=== PATIENT | female | born 1990 | race Caucasian/White ===

== ENCOUNTER 2019-01-06 02:13 | Emergency (ER) | payer MEDICAID ==
[~2019-01-06] VITALS: Ht 165.1 cm; Wt 83.6 kg
[2019-01-06] MEDS ORDERED: HALOPERIDOL 5 MG INJ ONE (02:27)
[2019-01-06 02:28] VITALS: Ht 165.1 cm; Wt 83.6 kg
[2019-01-06] MEDS ORDERED: DIPHENHYDRAMINE 50 MG INJ ONE (02:28)
[2019-01-06] MEDS ORDERED: LORAZEPAM 2 MG INJ ONE (02:28)
--- NOTE | 2019-01-06 02:33 | ERD ---
ER Documentation Chief Complaint Chief Complaint agitation HPI The patient is a 28-year-old female, presenting to the ER with EMS and [employer] because she was yelling and acting bizarre on the street. She was put under 5150 by [employer]. She is yelling, agitated and unable to provide any history Past medical/surgical history/social history/review of system: Unable to obtain due to her condition ROS All systems reviewed and are negative except as per history of present illness. Medications Home Meds Discontinued Reported Medications [None] No Conflict Check 12/24/10 Allergies Allergies: Coded Allergies: No Known Allergy (Verified Allergy, Unknown, 04/02/11) PMhx/Soc History of Surgery: No Anesthesia Reaction: No Hx Neurological Disorder: No Hx Respiratory Disorders: No Hx Cardiac Disorders: No Hx Psychiatric Problems: No Hx Miscellaneous Medical Probl: No Hx Alcohol Use: No Hx Substance Use: Yes (CRYSTAL METH) Hx Tobacco Use: No Physical Exam Vitals Vital Signs Date Temp Pulse Resp B/P (MAP) Pulse Ox O2 O2 Flow FiO2 Time Delivery Rate 01/06/19 98.9 60 18 112/67 98 Room Air 23:00 (82) 01/06/19 78 18 105/70 100 Room Air 17:30 (82) 01/06/19 73 18 116/72 100 Room Air 16:30 (87) 01/06/19 66 17 96/63 (74) 100 Room Air 15:30 01/06/19 70 17 110/68 100 Room Air 14:14 (82) 01/06/19 82 16 102/60 100 Nasal 2.0 12:02 (74) Cannula 01/06/19 80 16 96/75 (82) 100 Nasal 2.0 08:24 Cannula 01/06/19 77 13 94/53 (67) 100 Nasal 2.0 06:21 Cannula 01/06/19 89 14 98/53 (68) 98 Nasal 2.0 06:00 Cannula 01/06/19 91 14 92/52 (65) 98 Nasal 2.0 05:47 Cannula 01/06/19 91 15 92/48 (63) 98 Nasal 2.0 05:34 Cannula 01/06/19 84 14 101/67 99 Nasal 2.0 05:20 (78) Cannula 01/06/19 83 14 109/57 100 Nasal 4.0 04:51 (74) Cannula 01/06/19 87 14 91/48 (62) 100 Non 10.0 04:42 Rebreather 01/06/19 91 15 100/59 100 Non 10.0 04:25 (73) Rebreather 01/06/19 95 15 100/47 96 Non 10.0 04:07 (64) Rebreather 01/06/19 97 19 97/50 (66) 100 Non 10.0 03:45 Rebreather 01/06/19 97.5 96 15 117/71 96 02:28 (86) Physical Exam Const: No acute distress. Head: Atraumatic. Eyes: Normal Conjunctiva. ENT: Normal External Ears, Nose and Mouth. Neck: Full range of motion. No meningismus. Resp: Clear to auscultation bilaterally. Cardio: Regular rate and rhythm. Abd: Soft, non distended, normal bowel sounds, non tender. Skin: No petechiae or rashes. Back: No midline or flank tenderness. Ext: No cyanosis, or edema. Neur: Awake and alert. No focal deficit Psych: Guarded, agitated, psychotic Result Diagram: 01/06/1931801/06/19318 Results 24 hrs Laboratory Tests Test 01/06/19 03:19 01/06/19 07:13 White Blood Count 5.3 10^3/ul Red Blood Count 3.86 10^6/ul Hemoglobin 11.3 g/dl Hematocrit 34.6 % Mean Corpuscular Volume 89.6 fl Mean Corpuscular Hemoglobin 29.3 pg Mean Corpuscular Hemoglobin Concent 32.7 g/dl Red Cell Distribution Width 13.0 % Platelet Count 230 10^3/UL Mean Platelet Volume 9.0 fl Immature Granulocytes % 0.200 % Neutrophils % 45.4 % Lymphocytes % 44.4 % Monocytes % 7.0 % Eosinophils % 2.4 % Basophils % 0.6 % Nucleated Red Blood Cells % 0.0 /100WBC Immature Granulocytes # 0.010 10^3/ul Neutrophils # 2.4 10^3/ul Lymphocytes # 2.4 10^3/ul Monocytes # 0.4 10^3/ul Eosinophils # 0.1 10^3/ul Basophils # 0.0 10^3/ul Nucleated Red Blood Cells # 0.0 10^3/ul Sodium Level 143 mmol/L Potassium Level 3.6 mmol/L Chloride Level 110 mmol/L Carbon Dioxide Level 22 mmol/L Anion Gap 11 Blood Urea Nitrogen 12 mg/dl Creatinine 0.49 mg/dl Est Glomerular Filtrat Rate mL/min > 60 mL/min Glucose Level 86 mg/dl Calcium Level 8.5 mg/dl Total Bilirubin 0.2 mg/dl Direct Bilirubin 0.00 mg/dl Indirect Bilirubin 0.2 mg/dl Aspartate Amino Transf (AST/SGOT) 39 IU/L Alanine Aminotransferase (ALT/SGPT) 22 IU/L Alkaline Phosphatase 66 IU/L Creatine Kinase 360 IU/L Total Protein 7.8 g/dl Albumin 4.0 g/dl Globulin 3.80 g/dl Albumin/Globulin Ratio 1.05 Beta HCG, Quantitative < 2.4 mIU/ml Salicylates Level < 1.0 mg/dl Urine Opiates Screen Negative Acetaminophen Level < 10.0 ug/ml Urine Barbiturates Negative Urine Amphetamines Screen POSITIVE Urine Benzodiazepines Screen Negative Urine Cocaine Screen Negative Urine Cannabinoids Negative Ethyl Alcohol Level 181.0 mg/dl POC Beta HCG, Qualitative NEGATIVE Current Medications Medications Dose Sig/Bill Start Time Status Last (Trade) Ordered Route PRN Stop Time Admin Dose Reason Admin Haloperidol 5 mg STK-MED 01/06/19 DC (Haldol) ONCE .ROUTE 02:27 01/06/19 02:28 50 mg STK-MED 01/06/19 DC Diphenhydrami ONCE .ROUTE 02:28 ne HCl 01/06/19 02:29 (Benadryl) Lorazepam 2 mg STK-MED 01/06/19 DC (Ativan) ONCE .ROUTE 02:28 01/06/19 02:29 Lorazepam 2 mg ONCE ONCE 01/06/19 DC 01/06/19 (Ativan) IM 03:00 02:50 01/06/19 03:01 Haloperidol 5 mg ONCE ONCE 01/06/19 DC 01/06/19 (Haldol) IM 03:00 02:51 01/06/19 03:01 50 mg ONCE ONCE 01/06/19 DC 01/06/19 Diphenhydrami IM 03:00 02:50 ne HCl 01/06/19 03:01 (Benadryl) Sodium 1,000 ml @ Q1H ONCE 01/06/19 DC 01/06/19 Chloride 1,000 mls/hr IV 04:00 03:49 01/06/19 04:59 Procedures/MDM MEDICAL MAKING DECISION: The patient is a 28-year-old female, presenting with acute psychosis, acute alcohol abuse. She did not responding to counseling, she was therefore treated with Benadryl 50 mg IM, Ativan 2 mg IM and haloperidol 2 mg IM with good response. She is clear resting well. The differential diagnoses considered include but are not limited to drug- induced psychosis, psychosis, decompensated psychiatric illness Departure Diagnosis: Primary Impression: Psychosis Additional Impressions: Amphetamine abuse Alcohol abuse Anemia Condition: Stable Comments She is signed out to the oncoming physician Dr. Alonso at 6 AM, pending on telepsychiatrist evaluation BRENDAN GILBERT MD January 06, 2019 02:33
[2019-01-06] MEDS ORDERED: HALOPERIDOL 5 MG INJ IM ONE (03:00)
[2019-01-06] MEDS ORDERED: DIPHENHYDRAMINE 50 MG INJ IM ONE (03:00)
[2019-01-06] MEDS ORDERED: LORAZEPAM 2 MG INJ IM ONE (03:00)
[2019-01-06] MEDS ORDERED: SOD CHLORIDE 0.9% 1,000 ML IV ONE (04:00)
--- NOTE | 2019-01-06 18:18 | PSY ---
Date/Time of Note Date/Time of Note DATE: 01/06/19 TIME: 19:14 Psychiatric Subjective Eval Consent Pt consented to telemedicine: Yes Subjective Evaluation Patient location: emergency Chief Complaint: BIBA for Agitation Reason for consult: agitation History of present illness the patient was placed on a 5150 by law enforcement. the patient apparently was slightly agitated with the officers. since she has been in the emergency room, the patient has been calm. when interviewed, she is initially sleepy and uncooperative, eventually she answers my questions. she denies any suicidal or homicidal ideations. she is able to take care of her basic needs. she is no longer agitated or assaultive. she does not take any medications at home. she would like to go home. Past psychiatric history the patient stated that her longtime ago she was in a psychiatric hospital Hospitalization: yes Family History unknown Medical history unremarkable Allergies: Coded Allergies: No Known Allergy (Verified Allergy, Unknown, 04/02/11) Substance Abuse Substance use: No known substance abuse Substance abuse history: No Prior substance abuse treatmen: No Social History Marital status: single Level of education: unable to assess DPA/Conservatorship: No Occupation/Jail: unemployed Psychiatric Objective Eval Review of Systems: Review of Systems: Not Applicable Physical Examination: Physical Examination: Not Applicable Mental Status Examination: Appearance: Poor Hygiene Eye Contact: Poor Psychomotor Activity: Normal Behavior: Guarded Speech: Clear AFFECT: Guarded Mood: Irritable Though Process: Linear Thought Content: Normal Suicidal: No Homicidal: No On 72 hour hold: Yes Orientation: x4 Cognition: Alert Insight: Intact Judgement: Mild Attention Span: Intact Laboratory Results Laboratory Tests Test 01/06/19 03:19 01/06/19 07:13 White Blood Count 5.3 10^3/ul Red Blood Count 3.86 10^6/ul Hemoglobin 11.3 g/dl Hematocrit 34.6 % Mean Corpuscular Volume 89.6 fl Mean Corpuscular Hemoglobin 29.3 pg Mean Corpuscular Hemoglobin Concent 32.7 g/dl Red Cell Distribution Width 13.0 % Platelet Count 230 10^3/UL Mean Platelet Volume 9.0 fl Immature Granulocytes % 0.200 % Neutrophils % 45.4 % Lymphocytes % 44.4 % Monocytes % 7.0 % Eosinophils % 2.4 % Basophils % 0.6 % Nucleated Red Blood Cells % 0.0 /100WBC Immature Granulocytes # 0.010 10^3/ul Neutrophils # 2.4 10^3/ul Lymphocytes # 2.4 10^3/ul Monocytes # 0.4 10^3/ul Eosinophils # 0.1 10^3/ul Basophils # 0.0 10^3/ul Nucleated Red Blood Cells # 0.0 10^3/ul Sodium Level 143 mmol/L Potassium Level 3.6 mmol/L Chloride Level 110 mmol/L Carbon Dioxide Level 22 mmol/L Anion Gap 11 Blood Urea Nitrogen 12 mg/dl Creatinine 0.49 mg/dl Est Glomerular Filtrat Rate mL/min > 60 mL/min Glucose Level 86 mg/dl Calcium Level 8.5 mg/dl Total Bilirubin 0.2 mg/dl Direct Bilirubin 0.00 mg/dl Indirect Bilirubin 0.2 mg/dl Aspartate Amino Transf (AST/SGOT) 39 IU/L Alanine Aminotransferase (ALT/SGPT) 22 IU/L Alkaline Phosphatase 66 IU/L Creatine Kinase 360 IU/L Total Protein 7.8 g/dl Albumin 4.0 g/dl Globulin 3.80 g/dl Albumin/Globulin Ratio 1.05 Beta HCG, Quantitative < 2.4 mIU/ml Salicylates Level < 1.0 mg/dl Urine Opiates Screen Negative Acetaminophen Level < 10.0 ug/ml Urine Barbiturates Negative Urine Amphetamines Screen POSITIVE Urine Benzodiazepines Screen Negative Urine Cocaine Screen Negative Urine Cannabinoids Negative Ethyl Alcohol Level 181.0 mg/dl POC Beta HCG, Qualitative NEGATIVE Assessment and Plan Assessment/Diagnosis Diagnosis Mood disorder unspecified Recommendation/Plan Medication Management no medications indicated at this time Multiple antipsychotics: No Discharge Disposition: Community (home) Legal Status: Release involuntary hold DOV GONZÁLES January 06, 2019 18:18
--- NOTE | 2019-01-06 18:28 | QN ---
Documentation Comment Psychiatric Observation Note: Indication: Agitation Duration: Greater than 10 hours Family history: As documented in original HPI The patient was observed with serial exams over the above timeframe. The patient continued to be well-appearing, and observation continued without complication. All other needs have been met during emergency department stay. Routine psychiatric medications ordered: Not requested by telemetry medicine psychiatry Hold status: The patient was placed on a 5150 hold by the police officers. However on my reassessment the patient is no longer suicidal or homicidal. This is likely secondary to polysubstance abuse and methamphetamine. The patient warrants a repeat examination by telemetry medicine psychiatry for possibly breaking the hold. Placement status: Telemetry medicine psychiatry has recommended breaking the hold. The patient is safe for discharge. Assessment and Plan Assessment/Diagnosis Diagnosis Mood disorder unspecified Recommendation/Plan Medication Management no medications indicated at this time Multiple antipsychotics: No Discharge Disposition: Community (home) Legal Status: Release involuntary hold Homeless discharge process initiated by nursing. JOLENE LOCKWOOD MD January 06, 2019 18:28
[2019-01-06 23:00] VITALS: BP 112/67; PULSE 60; RESP 18
== END 2019-01-06 23:42 | disposition home or self-care (01) ==
LOC: E/R 02:13
DX: F15.159 Other stimulant abuse with stimulant-induced psychotic disorder, unspecified (principal); F10.159 Alcohol abuse with alcohol-induced psychotic disorder, unspecified; D64.9 Anemia, unspecified; R40.2142 Coma scale, eyes open, spontaneous, at arrival to emergency department; R40.2232 Coma scale, best verbal response, inappropriate words, at arrival to emergency department; R05 Cough
CPT/HCPCS: 51702; 71045; 80053; 80307; 81025; 82550; 84702; 85025; J1200; J1630; J2060; J7030; 36415; 96372